=== PATIENT | female | born 1935 | race Caucasian/White ===

== ENCOUNTER 2024-06-05 10:20 | Emergency (ER) | payer MEDICARE, SELFPAY ==
[2024-06-05 10:23] VITALS: BP 155/59
[2024-06-05 10:39] LABS: % Basophils 2.4 % (0-2); % Eosinophils 4.7 % (0-6); % Immature Granulocytes 0.2 % (0-0.5); % Lymphocytes 22.1 % (20.5-51.1); % Neutrophils 59.6 % (42.2-75.2); Absolute Basophils 0.1 10^3/uL (0-0.2); Absolute Eosinophils 0.3 10^3/uL (0-0.7); Absolute Lymphocytes 1.2 10^3/uL (1.2-3.4); Absolute Monocytes 0.6 10^3/uL (0.1-0.6); Absolute Neutrophils 3.2 10^3/uL (1.4-6.5); Hematocrit 36.1 % (37.0-47.0); Hemoglobin 12.2 g/dL (12.0-16.0); Mean Corp Hgb Conc. 33.8 g/dL (33.0-37.0); Mean Corpuscular Hgb 30.4 pg (27.0-31.0); Mean Platelet Volume 10.2 fL (7.4-10.4); Nucleated Red Blood Cells % 0 %; Platelet Count 244 10^3/uL (130-400); Red Blood Cell Count 4.01 10^6/uL (4.20-5.40); Red Cell Dist. Width 14.4 % (11.5-14.5); White Blood Cell Count 5.3 10^3/uL (4.8-10.8)
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
[2024-06-05 10:54] LABS: ALT (SGPT) 18 U/L (0-35); AST (SGOT) 42 U/L (14-36); Albumin 3.9 g/dl (3.5-5.0); Alkaline Phosphatase 103 U/L (38-126); Blood Urea Nitrogen 26 mg/dl (7-17); Calcium 9.2 mg/dl (8.4-10.2); Carbon Dioxide 30 mmol/L (22-30); Chloride 100 mmol/L (98-107); Estimated Creatinine Clearance 41 ml/min; Glucose 185 mg/dl (70-99); Sodium 138 mmol/L (135-145); Total Bilirubin 0.6 mg/dl (0.2-1.3); Total Protein 6.9 g/dl (6.3-8.2); eGFR 43.81
[2024-06-05 11:04] LABS: Troponin I 0.028 ng/ml
[2024-06-05 12:00] VITALS: BP 142/64
[2024-06-05 13:00] VITALS: BP 150/67
[2024-06-05 14:00] VITALS: BP 156/95
[2024-06-05 14:15] LABS: Troponin I 0.027 ng/ml
[2024-06-05 15:00] VITALS: BP 164/77
[2024-06-05 16:00] VITALS: BP 166/85
== END 2024-06-05 16:00 | disposition home or self-care (01) ==
LOC: EMR 10:20
PROVIDERS: Physician Assistant; EMERGENCY PHYSICIAN Emergency Medicine; FAMILY PHYSICIAN Internal Medicine
DX: R07.89 Other chest pain (principal); R10.13 Epigastric pain; R06.02 Shortness of breath; R42 Dizziness and giddiness; K44.9 Diaphragmatic hernia without obstruction or gangrene; I10 Essential (primary) hypertension; E11.9 Type 2 diabetes mellitus without complications; E78.00 Pure hypercholesterolemia, unspecified; R01.1 Cardiac murmur, unspecified; Z99.3 Dependence on wheelchair; Z79.82 Long term (current) use of aspirin; Z88.0 Allergy status to penicillin; Z88.8 Allergy status to other drugs, medicaments and biological substances
CPT/HCPCS: 99283; 71046; 80053; 84484; 85025; 93005

== ENCOUNTER 2025-06-08 11:14 | Emergency (ER) | payer MEDICARE, SELFPAY ==
[2025-06-08 11:16] VITALS: BP 168/84; BMI 41.3
[2025-06-08 11:24] VITALS: BP 168/84
[2025-06-08 12:00] VITALS: BP 163/70
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
[2025-06-08] MEDS: LET TOPICAL ANESTHETIC GEL 3 ML TOPICAL (12:34)
== END 2025-06-08 18:15 ==
LOC: EMR 11:14
PROVIDERS: EMERGENCY PHYSICIAN Emergency Medicine
DX: S01.21XA Laceration without foreign body of nose, initial encounter (principal); S02.2XXA Fracture of nasal bones, initial encounter for closed fracture; V00.811A Fall from moving wheelchair (powered), initial encounter; I10 Essential (primary) hypertension; E78.00 Pure hypercholesterolemia, unspecified; E11.9 Type 2 diabetes mellitus without complications
CPT/HCPCS: 99284; 12011; 70450; 70486; 72125